=== PATIENT | female | born 1990 | race Caucasian/White ===

== ENCOUNTER 2018-07-18 14:44 | Emergency (ER) | payer OTHER ==
--- NOTE | 2018-07-18 16:29 | ER Document Report ---
ED General - General Chief Complaint: Dizziness Stated Complaint: LIGHTHEADED,HEADACHES,WEAKNESS Time Seen by Provider: 07/18/18 16:12 Primary Care Provider: [facility] [Provider Group] - Follow up as needed Notes: Patient is a 28-year-old female, that presents to the emergency department for chief complaint of fatigue, and pelvic cramping. Patient states that she believes she had a miscarriage on the of this month, [facility] , and her hCG was low based on her dates, she was advised to follow-up and have repeat testing, however before having a chance to follow-up, she had passed clots, and had some vaginal bleeding that has since stopped, that occurred on the while she was at home. Since that time she is had some mild nausea, some lightheadedness, but denies having any syncope or passing out, she also denies having any vomiting, vaginal bleeding or discharge, and states that the cramping is minimal at this time. Currently rates it is a 0 out of 10, but occasionally will come and go. She was concerned because she had a miscarriage, and has not followed up at, and wanted to have testing to make sure everything was okay. Past Medical History: Denies chronic medical conditions Past Surgical History: Denies pertinent surgical history Social History: Denies tobacco, alcohol or drug use. Family History: Reviewed and noncontributory for presenting illness Allergies: Reviewed, see documented allergy list. REVIEW OF SYSTEMS: Other than noted above, the 12 point review of systems was reviewed with the patient and were negative, all pertinent findings are included in the HPI. PHYSICAL EXAMINATION: Vital signs reviewed, nursing noted reviewed. GENERAL: Well-appearing, well-nourished and in no acute distress. HEAD: Atraumatic, normocephalic. EYES: Eyes appear normal, extraocular movements intact, sclera anicteric, conjunctiva are normal. ENT: nares patent, oropharynx clear without exudates. Moist mucous membranes. NECK: Normal range of motion, supple without lymphadenopathy LUNGS: Breath sounds clear to auscultation bilaterally and equal. No wheezes rales or rhonchi. HEART: Regular rate and rhythm without murmurs ABDOMEN: Soft, nontender, normoactive bowel sounds. No rebound, guarding, or rigidity. No masses appreciated. EXTREMITIES: Nontender, good range of motion, no pitting or edema. NEUROLOGICAL: No focal neurological deficits. Moves all extremities spontaneously Motor and sensory grossly intact on exam. PSYCH: Normal mood, normal affect. SKIN: Warm, Dry, normal turgor, no rashes or lesions noted on exposed skin TRAVEL OUTSIDE OF THE [place] IN LAST 30 DAYS: No - Related Data Allergies/Adverse Reactions: Penicillins Allergy (Verified 07/18/18 14:47) Past Medical History - Social History Smoking Status: Never Smoker Family History: Reviewed & Not Pertinent Patient has suicidal ideation: No Patient has homicidal ideation: No Renal/ Medical History: Denies: Hx Peritoneal Dialysis Physical Exam - Vital signs Vitals: Temp Pulse Resp BP Pulse Ox 98.6 F 91 16 119/78 99 07/18/18 14:52 07/18/18 14:52 07/18/18 14:52 07/18/18 14:52 07/18/18 14:52 Course - Re-evaluation Re-evalutation: Patient seen and examined, vital signs reviewed, patient appears well on exam, was not complaining of any pain at this time, nor was she having any nausea. Will evaluate her for miscarriage, obtain quantitative hCG, urinalysis, transvaginal ultrasound and CBC Blood work was reviewed, was unremarkable, hCG was undetectable, UA unremarkable, CBC was normal, transvaginal ultrasound was normal as well, no retained products of conception. Patient appears well on exam, at this point I felt she could be discharged home safely to follow-up with [facility], which patient was agreeable to. She is advised she can return to her normal daily activities. - Vital Signs Vital signs: Temp Pulse Resp BP Pulse Ox 98.2 F 76 20 116/82 99 07/18/18 19:47 07/18/18 19:47 07/18/18 19:47 07/18/18 19:47 07/18/18 19:47 - Laboratory Result Diagrams: 07/18/18 16:46 Laboratory results interpreted by me: 07/18/18 16:46 Urine Blood SMALL H Discharge - Discharge Clinical Impression: Miscarriage Condition: Stable Disposition: HOME, SELF-CARE Instructions: Miscarriage ([facility]) Additional Instructions: Your blood results today demonstrate undetectable hCG, and your ultrasound was unremarkable as well, no retained products of conception, please follow-up with [facility], number provided, you can take Tylenol as needed for cramping if needed otherwise you can return to your normal activities. Referrals: [facility] [Provider Group] - Follow up as needed
[2018-07-18 17:01] LABS: ABSOLUTE BASOPHILS # (AUTO) 0.1 10^3/uL (0.0-0.2); ABSOLUTE EOSINOPHILS # (AUTO) 0.4 10^3/uL (0.0-0.6); ABSOLUTE LYMPHOCYTES (AUTO) 2.3 10^3/uL (0.5-4.7); ABSOLUTE MONOCYTES (AUTO) 0.4 10^3/uL (0.1-1.4); ABSOLUTE NEUT (AUTO) 4.1 10^3/uL (1.7-8.2); BASOPHILS % (AUTO) 0.8 % (0-2); EOSINOPHILS % (AUTO) 5.5 % (0-6); HEMATOCRIT 40.3 % (36.0-47.0); HEMOGLOBIN 14.1 g/dL (12.0-15.5); LYMPHOCYTES % (AUTO) 31.6 % (13-45); MEAN CORPUSCULAR HEMOGLOBIN 31.5 pg (27.0-33.4); MEAN CORPUSCULAR VOLUME 90 fl (80-97); MONOCYTES % (AUTO) 5.9 % (3-13); PLATELET COUNT 400 10^3/uL (150-450); RED BLOOD COUNT 4.49 10^6/uL (3.72-5.28); SEGMENTED NEUTROPHILS % (AUTO) 56.2 % (42-78); TOTAL CELLS COUNTED % (AUTO) 100 %; WHITE BLOOD COUNT 7.3 10^3/uL (4.0-10.5)
[2018-07-18 17:13] LABS: APPEARANCE,URINE SLIGHTLY-CLOUDY; BILIRUBIN,URINE NEGATIVE (NEGATIVE); COLOR,URINE YELLOW; GLUCOSE, URINE NEGATIVE (NEGATIVE); KETONES,URINE NEGATIVE (NEGATIVE); LEUKOCYTE ESTERASE,URINE NEGATIVE (NEGATIVE); NITRITE,URINE NEGATIVE (NEGATIVE); PROTEIN,URINE NEGATIVE (NEGATIVE); UROBILINOGEN,URINE NEGATIVE mg/dL (<2.0)
--- NOTE | 2018-07-18 19:34 | RADIOLOGY REPORT (SQ) ---
EXAM DESCRIPTION: U/S NON OB PEL TV W/DOPPLER COMPLETED DATE/TIME: 07/18/2018 7:08 pm REASON FOR STUDY: pelvic cramping, recent miscarriage COMPARISON: None. TECHNIQUE: Dynamic and static grayscale images acquired of the pelvis via transvaginal approach and recorded on PACS. Additional selected color Doppler and spectral images recorded. LIMITATIONS: None. FINDINGS: UTERUS: Contour normal. No mass. ENDOMETRIAL STRIPE: No focal or generalized thickening. No masses. CERVIX: No nabothian cysts. RIGHT OVARY AND DOPPLER: Normal size. No worrisome masses. Normal arterial vascular flow without evid ence for torsion. LEFT OVARY AND DOPPLER: Normal size. No worrisome masses. Normal arterial vascular flow without evide nce for torsion. FREE FLUID: None noted. OTHER: No other significant finding. MEASUREMENTS: UTERUS: 8.2 x 4.6 x 3.8 cm ENDOMETRIAL STRIPE: 5 mm RIGHT OVARY: 2.5 x 3.2 x 1.7 cm LEFT OVARY: 2.2 x 2.2 x 2.8 cm IMPRESSION: Age-appropriate exam. TECHNICAL DOCUMENTATION: JOB ID: [id number] [place]-[id number] 2010 [employer]- All Rights Reserved Rev-10/11 Reading location - IP/workstation name: [email or web address]
[2018-07-18 19:49] VITALS: BP 116/82
== END 2018-07-18 19:47 | disposition home or self-care (01) ==
LOC: ER 14:44
DX: O03.9 Complete or unspecified spontaneous abortion without complication (principal); R42 Dizziness and giddiness; R51 Headache; R53.1 Weakness
CPT/HCPCS: 36415; 76830; 81001; 84702; 85025; 93976; 99284